=== PATIENT | female | born 1975 | race Caucasian/White ===

== ENCOUNTER → 2017-06-23 | Outpatient (CLI) | payer MEDICAID ==
[~2017-06-23] MED LIST: ACETAMINOPHEN500 M3 PO; ADIPEX-P37.5 M1 PO; ALBUTEROL-200 PUFFS/ IH; APAP/BUTALBITAL1 TA1 PO; AURALGAN OT10 ML/BOT OT; AZITHROMYCIN250 MG PO; BACTRIM DS 8001 TAB PO; BENZONATATE100 MG PO; BIAXIN500 MG PO; BIRTH CONTROL PO; BUPROPION HCL300 MG PO; BUSPAR 5MG TAB5 MG PO; CIPRO 500MG TA500 MG PO; CLARITIN 10MG T10 MG PO; CLINDAMYCIN300 MG PO; CYMBALTA60 MG PO; DARVOCET-N 1001 EACH PO; DOCUSATE SODIU250 M1 PO; DOXYCYCLINE HY100 M4 PO; DULERA1 ARO IH; ENDOCET 325 MG-1 TA2 PO; FLEXERIL10 MG PO; FLONASE 50 MCG16 GM; FUROSEMIDE 40MG40 M1 PO; GUAFENESIN400 MG PO; HYCODAN 5MG. TAB5 MG PO; HYDROCODONE-APA1 TA2 PO; HYDROCODONE1 TABLET PO; HYDROXYZINE 25M25 MG PO; IBUPROFEN800 MG PO; IMITREX 25MG TA25 MG PO; KEFLEX 500MG.500 MG PO; LASIX40 MG PO; LEADER MELATONIN5 MG PO; LORTAB 5/5001 TAB PO; LORTAB 500 MG-11 TAB PO; LORTAB 500 MG-71 TAB PO; MEDROL 4MG. DOSE4 MG PO; METOPROLOL SUCC50 M1 PO; MOTRIN 600MG.600 MG PO; MOTRIN800 MG PO; MS CONTIN15 MG PO; MUCINEX DM 30 M1 TE1 PO; MUCUS RELIEF400 MG PO; NAPROXEN EC500 MG PO; NEURONTIN100 MG OR; OMEPRAZOLE20 MG PO; PERCOCET 5/3251 EACH PO; PREDNISONE 20MG20 MG PO; PREDNISONE50 MG PO; PYRIDIUM 200MG200 MG PO; SEPTRA DS 800 M1 TAB PO; SIMETHICONE80 MG PO; SINGULAIR10 MG PO; TESSALON PERLE100 M1 PO; TESSALON PERLE100 MG PO; VENTOLIN H0.09 MG/AC IH; VIBRA-TABS100 MG PO; VIBRAMYCIN 100100 MG PO; VICODIN 5/500 T1 TAB PO; VOLTAREN75 MG PO; ZANAFLEX4 MG NG; ZITHROMAX Z PA250 MG PO; ZYRTEC 10MG TAB10 MG PO; [UNRECOGNIZED DRUG - OTHER] PO
[2017-06-23 13:44] LABS: AMPHETAMINES/METAMPHETAMINES NEGATIVE ng/mL (<1000)
== END ==
LOC: LAB 12:35
PROVIDERS: Nurse Practitioner Family
DX: R20.2 Paresthesia of skin (principal)